=== PATIENT | female | born 1980 | race Caucasian/White ===

== ENCOUNTER 2019-03-27 21:22 | Emergency (ER) | payer OTHER ==
[2019-03-27] MEDS: HYDROCODONE/APAP (5/325) TAB PO (23:14)
[2019-03-27] MEDS: ONDANSETRON (ODT) 4 MG TAB ODT (23:14)
[2019-03-27 23:58] LABS: ADD UMIC YES; UR ASCORBIC ACID NEGATIVE (NEGATIVE); UR BILIRUBIN (Dip) NEGATIVE (NEGATIVE); UR BLOOD (Dip) 1+ mg/dL (NEGATIVE); UR CLARITY CLEAR (CLEAR); UR COLOR STRAW (YELLOW); UR GLUCOSE (Dip) NEGATIVE (NEGATIVE); UR KETONES (Dip) NEGATIVE (NEGATIVE); UR LEUKOCYTE ESTERASE (Dip) 1+ Leu/ul (NEGATIVE); UR NITRITE (Dip) NEGATIVE (NEGATIVE); UR RBC 1 /HPF (0-5); UR SPECIFIC GRAVITY (Dip) 1.003 (1.003-1.030); UR SQUAMOUS EPITHELIAL CELL FEW /HPF (FEW); UR TOTAL PROTEIN (Dip) NEGATIVE (NEGATIVE); UR UROBILINOGEN (Dip) NEGATIVE (NEGATIVE); UR WBC 6 /HPF (0-5)
== END 2019-03-28 01:28 | disposition home or self-care (01) ==
LOC: FTE 03-28 01:28
DX: N39.0 Urinary tract infection, site not specified (principal)
CPT/HCPCS: 70450; 81001; 81025; 87086; 99284-25